=== PATIENT | male | born 1980 | race Caucasian/White ===

== ENCOUNTER 2023-05-24 14:39 | Outpatient (REF) | payer MEDICAID, SELFPAY ==
[2023-05-24 16:10] LABS: Iron 108 ug/dL (65-175); Total Iron Binding Capacity 248 ug/dL (250-450); Transferrin Sat 44 % (20-55)
[2023-05-24 16:34] LABS: ALT 32 U/L (16-63); AST 35 U/L (15-37); Albumin 3.9 g/dL (3.4-5.0); Alkaline Phosphatase 73 U/L (46-116); Anion Gap 8.6 mmol/L (3-11); BUN 10 mg/dL (7-18); Bilirubin, Total 0.5 mg/dL (0.2-1.0); CO2 28.4 mmol/L (21.0-32.0); CREATININE 0.8 mg/dL (0.70-1.30); Calcium 8.9 mg/dL (8.5-10.1); Calculated LDL 110 mg/dL (<100); Chloride 105 mmol/L (98-107); Cholesterol 195 mg/dL (<200); Estimated GFR 111.92 (mL/min/1.73m2); Ferritin 176 ng/mL (26-388); Glucose 80 mg/dL (74-106); HDL Cholesterol 69 mg/dL (40-60); Potassium 4.5 mmol/L (3.5-5.1); Sodium 142 mmol/L (136-145); TSH (W/Ref FT4) 0.31 uIU/mL (0.36-3.74); Total Protein 7.5 g/dL (6.4-8.2); Triglyceride 80 mg/dL (<150)
[2023-05-24 16:55] LABS: FREE T4 0.89 ng/dL (0.76-1.46)
[2023-05-24 16:59] LABS: Abs Immature Grans 0.01 10^3/uL (0.0-0.06); Absolute Basophil Count 0.05 10^3/uL (0.0-0.2); Absolute Eosinophil Count 0.32 10^3/uL (0.0-0.7); Absolute Lymphocyte Count 2.24 10^3/uL (1.2-3.4); Absolute Monocyte Count 0.45 10^3/uL (0.1-0.8); Absolute Neutrophil Count 3.59 10^3/uL (1.2-6.7); Basophils % 0.8; Eosinophils % 4.8; HCT 44.2 % (40.0-50.0); Immature Grans % 0.2; Lymphocytes % 33.6; MCH 31.4 pg (27.0-33.0); MCHC 33.9 % (32.0-36.0); MCV 93 fL (80-95); MPV 10.4 fL (8.0-11.0); Monocytes % 6.8; Neutrophils % 53.8; Platelet Count 217 10^3/uL (130-400); RBC 4.78 10^6/uL (4.36-5.78); RDW 12.1 % (11.8-14.1); RDW-SD 41.4 fL; WBC 6.66 10^3/uL (4.4-10.8)
== END 2023-05-24 14:40 | disposition home or self-care (01) ==
LOC: NCHCN 14:39
PROVIDERS: Visit Provider Family Medicine
DX: Z13.220 Encounter for screening for lipoid disorders (principal); A60.9 Anogenital herpesviral infection, unspecified; R61 Generalized hyperhidrosis; Z83.2 Family history of diseases of the blood and blood-forming organs and certain disorders involving the immune mechanism
CPT/HCPCS: 80053; 80061; 82728; 83540; 83550; 84439; 84443; 85025

== ENCOUNTER 2024-04-04 15:04 | Outpatient (REF) | payer OTHER, SELFPAY ==
[2024-04-04 15:25] LABS: Anion Gap 11.1 mmol/L (3-11); BUN 17 mg/dL (7-18); CO2 26.9 mmol/L (21.0-32.0); CREATININE 0.9 mg/dL (0.70-1.30); Calcium 9.4 mg/dL (8.5-10.1); Calculated LDL 96 mg/dL (<100); Chloride 106 mmol/L (98-107); Cholesterol 200 mg/dL (<200); Estimated GFR 107.33 (mL/min/1.73m2); Glucose 86 mg/dL (74-106); HDL Cholesterol 68 mg/dL (40-60); Potassium 4.1 mmol/L (3.5-5.1); Sodium 144 mmol/L (136-145); Triglyceride 180 mg/dL (<150)
[2024-04-04 15:43] LABS: Hemoglobin A1C 5.6 % (<5.7)
== END 2024-04-04 15:05 | disposition home or self-care (01) ==
LOC: NCHCN 15:04
PROVIDERS: PCP Family Medicine; Visit Provider Family Medicine
DX: Z13.1 Encounter for screening for diabetes mellitus (principal); Z13.220 Encounter for screening for lipoid disorders
CPT/HCPCS: 80048; 80061; 83036

== ENCOUNTER 2024-09-11 09:04 | Day surgery (SDC) | payer OTHER, SELFPAY ==
--- NOTE | 2024-09-10 10:35 | W.PM.DSUDISC ---
Date of service: 09/11/24 Time of Service: 11:39 Discharge Plan Disposition Patient Disposition: Home Condition: Good Discharge Details Reason For Visit: screening colonscopy Attending Provider: Saurav Nolen Primary Care Provider: Lydia Myers Home Meds and New Rx's Prescriptions: Continued omega-3 acid ethyl esters [Lovaza] 1 gram capsule 2 cap PO DAILY valacyclovir [Valtrex] 500 mg tablet 500 mg PO BID PRN Discontinued bisacodyl [Dulcolax (bisacodyl)] 5 mg tablet,delayed release (DR/EC) 5 mg PO ONCE Qty: 4 0RF Rx Instructions: Take per colonoscopy instructions provided by ordering providers office polyethylene glycol 3350 17 gram/dose powder 17 g PO ONCE Qty: 238 0RF Rx Instructions: Take per colonoscopy instructions provided by ordering providers office Discharge Instructions Instructions: Colon polyps Additional Instructions: Yuri, it was a pleasure meeting you today, and I hope you are comfortable during the procedure. I did find to remove a single polyp in your rectum today. It is quite small. I will send this off for testing, as the nature of polyps determines the timing of the next colonoscopy. These results usually take about a week or 2 to get back, but as soon as we have them, the office will be in touch with recommendations. If you need anything in the meantime, please do not hesitate to call 1. If tolerated, consume a soft, low fiber diet for 1-2 days. 2. Do not drive, drink alcohol, operate machinery, make critical decisions, or do activities that require coordination or balance for 24 hours. 3. Because air was put into your colon during the procedure, expelling air from your rectum (passing gas or farting) is normal. 4. You may not have a bowel movement for 1-3 days because of the colonoscopy prep. This is normal. 5. Go directly to the emergency room if you notice any of the following: Develop chills (warm to touch), or if you have a thermometer and your temperature is above 101 Difficulty breathing or difficultly swallowing Persistent vomiting Severe abdominal pain, other than gas cramps Severe chest pain Black, tarry stools Any bleeding ? exceeding one tablespoon 6. Call your physician if the site where your intravenous was started becomes red, swollen, painful, and warm to touch. 7. Your physician has reviewed your pre-procedure medications. Please continue to take those medications as previously ordered. You will be given specific information/education regarding any changes to your medications before leaving. Activity:: Activity as Tolerated Diet:: As Tolerated Discharge Orders Discharge Orders: Discharge Order (Routine); Ordered 09/10/24 Ordered By: Saurav Nolen DS: Diagnosis Discharge Diagnosis (1) Encounter for screening colonoscopy: Status: Acute Asessment and Plan: Follow-up on polypectomy results
--- NOTE | 2024-09-10 10:36 | W.COLOREPORT ---
Date of service: 09/11/24 Time of Service: 11:40 Colonoscopy Report Date of procedure: 09/11/24 Pre-op diagnosis general: screening colonoscopy Post-op diagnosis procedure note: other (Rectal polyp) Procedure: colonoscopy with polypectomy Surgeon: Saurav Nolen Anesthesia Type: General:No Airway Estimated blood loss (mL): 5 Pathology: other (0.25 cm rectal polyp) Complications: None Disposition: same day Indications: Yuri is a 44 year old man who needs his next screening colonoscopy Prep: Miralax/Dulcolax Procedure Start Time: 11:16 Procedure End Time: 11:31 Retraction Time: 10 Findings: 0.25 cm rectal polyp Procedure Description: After the induction of anesthesia, and with the patient in left lateral decubitus position, I began by performing an external anorectal exam.? Perineum and skin were normal, as was the anal verge.? There was no evidence of external hemorrhoids.? Next, I performed a digital rectal exam.? I did not appreciate any abnormal findings.? Next, I advanced a colonoscope into the rectal vault.? I performed retroflexion.? This appeared normal.? Using insufflation, I then advanced the colonoscope beyond the rectal folds and into the sigmoid colon before advancing towards the cecum.? The scope was noted to be in the cecum by identification of the ileocecal valve and appendiceal orifice.? I then began withdrawing the colonoscope using repeated irrigation as necessary for full evaluation of the colonic mucosa. ?Once the scope was withdrawn to the level of the rectum, great care was taken to examine portions of the rectal folds.? In the upper portion of the rectal vault was a 0.25 cm mostly flat polyp. This was removed with cold forceps. There was minimal bleeding. Finally, the scope was withdrawn and the patient was brought to the same-day surgery recovery unit as the anesthetic wore off. ?The findings and instructions were shared with the patient prior to discharge. [place] Bowel Prep [place] Bowel Prep Right Colon: 3 Left Colon: 3 Transverse Colon: 3 Total Score: 9
[2024-09-11 09:30] VITALS: BP 115/69; PULSE 59; RESP 16; TEMP 36.1; O2SAT 98
--- NOTE | 2024-09-11 09:50 | W.ANESPRE ---
General Info Date of Service Date Performed: 09/11/24 Height: 5 ft 11 in Weight: 68.4 kg Body Mass Index (BMI): 21.0 Surgical Procedure: Operation Date: 09/11/24 10:35 Proposed Procedure Side Surgeon p Colonoscopy Saurav Nolen MD Meds Allergies and Home Medications Allergies Allergy/AdvReac Type Severity Reaction Status Date / Time Sulfa (Sulfonamide Allergy Unknown unknown Verified 09/11/24 09:48 Antibiotics) Home Medication ?Medication ?Instructions ?Recorded omega-3 acid ethyl esters 1 gram 2 cap PO DAILY 07/17/24 capsule (Lovaza) valacyclovir 500 mg tablet 500 mg PO BID PRN 07/17/24 (Valtrex) Current Visit Medications: Current Medications Generic Name Dose Route Start Last Admin Trade Name Freq PRN Reason Stop Dose Admin Hyoscyamine Sulfate 0.125 mg 09/10/24 10:37 Hyoscyamine 0.125 Mg Sl/Oral/Chew SL 10/10/24 10:36 DIRECTED PRN Ringer's Solution 1,000 mls @ 80 mls/hr 09/11/24 06:00 IV 09/11/24 23:59 INFUSION VIDA IV Miscellaneous Supplies 1 each 09/11/24 06:00 Iv Access IV 09/11/24 23:59 DIRECTED VIDA Ondansetron HCl 4 mg 09/10/24 10:37 Ondansetron 4 Mg/2 Ml Vial IVP 10/10/24 10:36 Q4H PRN PRN Nausea / Vomiting Sodium Chloride 0 ml 09/11/24 06:00 Normal Saline Flush 10 Ml Syr IV 09/11/24 23:59 PRN PRN Sodium Chloride 0 ml 09/11/24 06:00 Normal Saline 10 Ml Vial IJ 09/11/24 23:59 DIRECTED PRN Sterile Water 0 ml 09/11/24 06:00 Water,Injection,Sterile 10 Ml Vial IJ 09/11/24 23:59 DIRECTED PRN PFSH Active Problems Active Problems: Problem Status Onset Code Encounter for screening colonoscopy Acute Z12.11 Skin lesion Acute L98.9 Hyperlipidemia Acute E78.5 Medical History Medical History Family history of polyps in the colon Family history of hemochromatosis Family history of malignant neoplasm of digestive organ Exposure to blood or body fluid Skin sensation disturbance Generalized hyperhidrosis Fatigue Mild intermittent asthma Erectile dysfunction Major depression Leukocytosis Hypertriglyceridemia Lyme disease Anogenital herpesviral infection Surgical History Surgical History H/O hernia repair History of colonoscopy Tobacco Smoking/Tobacco Use Status: Current-Occasional Tobacco Type: cigarettes Alcohol Alcohol Intake: current Alcohol intake frequency: 3 or more drinks per day Alcohol type: beer Substance Use Substance use type: marijuana Vital Signs and Lab Results Vital Signs Most Recent Vital Signs in EMR: Most Recent Vital Signs Temp Pulse Resp BP Pulse Ox 36.1 C L 59 L 16 115/69 98 09/11/24 09:30 09/11/24 09:30 09/11/24 09:30 09/11/24 09:30 09/11/24 09:30 Lab Results Blood Type / Crossmatch: No Data to Display Complete Blood Count: No Data to Display Complete Metabolic Panel: No Data to Display Liver Function Panel: No Data to Display Coagulation Panel: No Data to Display Cardiac Panel: No Data to Display Arterial Blood Gas: No Data to Display Venous Blood Gas: No Data to Display Pancreas Panel: No Data to Display Thyroid Panel: No Data to Display Infectious Disease: No Data to Display Blood Cultures: No Data to Display Toxicology Panel: No Data to Display Anesthesia Assessment and Plan Anesthesia History Personal History: No History of Anesthesia Complications Family History: No Family History of Anesthesia Complications Exercise Tolerance Exercise Tolerance: Metabolic Equivalents>4 Pertinent Negatives Pertinent Negatives: No Symptoms of GERD, No Major Cardiovascular Symptoms or Complaints, No Major Pulmonary Symptoms or Complaints and No History of CVA/TIA Cardiac & Pulmonary Exam Cardiac Exam: Normal S1/S2 Heart Sounds Pulmonary Exam: Clear Bilateral Breath Sounds and Active Dry Cough Implantable Cardiac Device Does patient have a Pacemaker or an ICD?: No Airway Exam Known Difficult Airway: No Mallampati Class: 1 Mouth Opening: Normal (> 3cm) Thyromental Distance: Greater than 3 cm Neck Range of Motion: Full ROM Neck Circumference: Normal Teeth Condition: Normal Dentition ASA Classification ASA Score: ASA 2 Emergency Case?: No NPO Status NPO Status: NPO Clears >2 hours, Solids >8 hours Anesthesia Plan Resuscitation Status: Full Code Anesthesia Technique: General Anesthesia Airway Planned: Natural Airway Monitors Used: Standard Monitors
[2024-09-11 09:51] VITALS: BMI 21.0
[2024-09-11] MEDS: Lactated Ringers 1,000 ML 80 ML IV (10:45)
--- NOTE | 2024-09-11 11:30 | BOWEL_PTH ---
PATIENT: Yuri Harden LOC: [facility] U#:[id number] AGE/SX: 44/M ROOM: RE09/11/[address]: Saurav Nolen MD : 1980 BED: DIS: 09/11/2024 SPEC #: [id number] RECD: 09/11/24 13:01 STATUS: JOHANNA RE #: [id number] JACQUIE: 09/11/24 11:[address]: Saurav Nolen DEPT: Surgical Specimen RECD BY: Amanda Zambrano ENTERED: 09/11/24 13:02 SP TYPE: Bowel OTHR DR: Lydia Myers Tissues: 1 - BIOPSY BOWEL Procedures: GROSS AND MICRO LEVEL 4 Comments: [id number]
[2024-09-11 11:37] VITALS: BP 118/78; PULSE 57; RESP 16; TEMP 35.9; O2SAT 97
--- NOTE | 2024-09-11 12:01 | W.ANESPOSTOP ---
Postoperative Evaluation Date, Time and Location Date Performed: 09/11/24 Time Performed: 11:38 Patient Location: Day Surgery Unit Vital Signs Most Recent Imported Vital Signs: Most Recent Vital Signs Temp Pulse Resp BP Pulse Ox 35.9 C L 57 L 16 118/78 97 09/11/24 11:37 09/11/24 11:37 09/11/24 11:37 09/11/24 11:37 09/11/24 11:37 Pain Score Most Recent Pain Score: Most Recent Pain Score Pain Level 0 09/11/24 11:37 Assessment Mental Status: Awake (Alert & Oriented to Patient Baseline) Airway and Respiratory Function: Patent airway with normal (patient baseline) respiratory exam Cardiovascular Function: Hemodynamically Stable Hydration Status: Adequately Hydrated Nausea & Vomiting: No Nausea or Vomiting Pain: Pt. Denies Any Pain Peripheral Nerve Block: Patient did not receive a nerve block
[2024-09-11 12:07] VITALS: BP 112/87; PULSE 51; RESP 16; TEMP 36.2; O2SAT 99
== END 2024-09-11 12:26 | disposition home or self-care (01) ==
LOC: SUR 09:11
PROVIDERS: PCP Family Medicine; Visit Provider Surgery
PROC: 0DJD8ZZ Inspection of Lower Intestinal Tract, Via Natural or Artificial Opening Endoscopic (ICD-10-PCS; CPT 45378; principal; 2024-09-11 10:30)
DX: Z12.11 Encounter for screening for malignant neoplasm of colon (principal); K62.1 Rectal polyp; Z80.0 Family history of malignant neoplasm of digestive organs
CPT/HCPCS: 45380; 88305; J2704